=== PATIENT | male | born 1995 | race Caucasian/White ===

== ENCOUNTER 2018-08-26 07:20 | Emergency (ER) | payer BC ==
[2018-08-26 07:35] VITALS: BP 125/59
[2018-08-26] MEDS ORDERED: hydrOXYzine HCL TAB* 25 MG PO ONE (08:08)
[2018-08-26] MEDS ORDERED: Ondansetron ODT TAB* 4 MG PO ONE (08:09)
[2018-08-26] MEDS ORDERED: NS 0.9% 1000 ML* 1,000 ML IV ONE (08:09)
--- NOTE | 2018-08-26 08:15 | UC ---
Psychiatric Complaint HPI - HPI Summary HPI Summary: 23-year-old male comes in to clinic today with a chief complaint of feeling very anxious. Patient's been having anxiety for several weeks. He's had a couple episodes where he was hyperventilating and felt lightheaded and tingly all over. This particular episode occurred overnight. He did drink alcohol 2 evenings ago and yesterday had a hangover and was nauseous and did vomit. He reports his concentration is good his sleep typically has been good except for last night. Energy levels normal. Denies any suicidality. He is here with his girlfriend who he spends a lot of time with although they do not live in the same household. 5 days ago he saw a mental health counselor for the first time for this anxiety. He's not on any medications for anxiety. He's an appointment in 2 days with the counselor and he was planning on calling them today and discussing his symptoms. - History Of Current Complaint Chief Complaint: UCGeneralIllness Stated Complaint: ANXIOUS Time Seen by Provider: 08/26/18 08:08 - Allergies/Home Medications Allergies/Adverse Reactions: Allergies Allergy/AdvReac Type Severity Reaction Status Date / Time sulfamethoxazole Allergy Unknown Verified 08/26/18 07:27 [From Bactrim] Reaction Details trimethoprim [From Bactrim] Allergy Unknown Verified 08/26/18 07:27 Reaction Details PMH/Surg Hx/FS Hx/Imm Hx Previously Healthy: Yes - Surgical History Surgical History: Yes Surgery Procedure, Year, and Place: R knee - Family History Known Family History: Positive: Non-Contributory - Social History Alcohol Use: Occasionally Alcohol Amount: had instance of heavy drinking last Friday 08/24 Substance Use Type: None Smoking Status (MU): Never Smoked Tobacco Review of Systems All Other Systems Reviewed And Are Negative: Yes Constitutional: Positive: Other - Feels tingly all over as a hard time moving when he hyperventilates Skin: Positive: Negative Eyes: Positive: Negative ENT: Positive: Negative Respiratory: Positive: Negative Cardiovascular: Positive: Negative Gastrointestinal: Positive: Vomiting Genitourinary: Positive: Negative Motor: Positive: Negative Neurovascular: Positive: Negative Musculoskeletal: Positive: Negative Neurological: Positive: Headache - mild headache since having hangover since yesterday Psychological: Positive: Anxious Is Patient Immunocompromised?: No Physical Exam Triage Information Reviewed: Yes Appearance: No Pain Distress, Well-Nourished, Other: - anxious appearing Vital Signs: Initial Vital Signs Temp 100 F 08/26/18 07:27 Pulse 84 08/26/18 07:27 Resp 20 08/26/18 07:27 BP 125/59 08/26/18 07:27 Pulse Ox 100 08/26/18 07:27 Vital Signs Reviewed: Yes Eye Exam: Normal Eyes: Positive: Conjunctiva Clear ENT: Positive: Pharynx normal, Other - oral mucosa moist. Negative: Nasal drainage Neck exam: Normal Neck: Positive: Supple Respiratory: Positive: Lungs clear, Normal breath sounds, No respiratory distress Cardiovascular: Positive: RRR Musculoskeletal Exam: Normal Musculoskeletal: Positive: Strength Intact, ROM Intact Neurological Exam: Normal Neurological: Positive: Alert, Muscle Tone Normal Psychological Exam: Normal Psychological: Positive: Age Appropriate Behavior Skin Exam: Normal Psych Complaint Course/Dx - Course Course Of Treatment: In clinic patient was given hydroxyzine 25 mg by mouth. He declined IV fluids and Zofran. He was able to drink water in clinic. He feels improved. We discussed going to the emergency department if he has any thoughts of hurting himself or the anxiety gets out of control and he agreed with this. He will be calling his counselor today day for follow-up. At this time in clinic the patient denies suicidality. - Differential Dx/Diagnosis Provider Diagnosis: Anxiety Discharge - Sign-Out/Discharge Documenting (check all that apply): Patient Departure All imaging exams completed and their final reports reviewed: No Studies - Discharge Plan Condition: Stable Disposition: HOME Prescriptions: hydrOXYzine HCl [Hydroxyzine HCl] 50 mg PO Q6H PRN #20 tablet PRN Reason: Anxiety Patient Education Materials: Anxiety (ED) Referrals: [facility] [Outside] [facility] [Outside] Additional Instructions: FOLLOW UP WITH YOUR PSYCHIATRIC COUNSELOR TODAY. GO TO THE EMERGENCY DEPARTMENT FOR ANY WORSENING OF YOUR CONDITION; ANXIETY, YOU FEEL LIKE HURTING YOURSELF OR QUESTIONS OR CONCERNS. - Billing Disposition and Condition Condition: STABLE Disposition: Home
== END 2018-08-26 09:30 | disposition home or self-care (01) ==
LOC: UCEAST 07:20
DX: F41.9 Anxiety disorder, unspecified (principal); Z88.1 Allergy status to other antibiotic agents
CPT/HCPCS: 99202; A9270-GY; G0463

== ENCOUNTER 2018-12-19 21:51 | Emergency (ER) | payer BC ==
--- NOTE | 2018-12-19 21:55 | UC ---
Ear Complaint HPI - HPI Summary HPI Summary: 23 yo male presents with RIGHT ear injury. 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 Since that time has had external right ear pain. He is concerned that he may develop cauliflower ear. No hearing difficulties. - History of Current Complaint Stated Complaint: RED AND SWOLLEN EAR Time Seen by Provider: 12/19/18 21:54 Hx Obtained From: Patient Onset/Duration: Sudden Onset Severity Initially: Moderate Severity Currently: Moderate Pain Intensity: 5 Pain Scale Used: 0-10 Numeric - Allergies/Home Medications Allergies/Adverse Reactions: Allergies Allergy/AdvReac Type Severity Reaction Status Date / Time sulfamethoxazole Allergy Unknown Verified 08/26/18 07:27 [From Bactrim] Reaction Details trimethoprim [From Bactrim] Allergy Unknown Verified 08/26/18 07:27 Reaction Details PMH/Surg Hx/FS Hx/Imm Hx - Additional Past Medical History Additional PMH: Anxiety - Surgical History Surgical History: Yes Surgery Procedure, Year, and Place: R knee - Family History Known Family History: Positive: Non-Contributory - Social History Occupation: Student Lives: With Family Alcohol Use: Occasionally Alcohol Amount: had instance of heavy drinking last Friday 08/24 Substance Use Type: None Smoking Status (MU): Never Smoked Tobacco Review of Systems All Other Systems Reviewed And Are Negative: Yes Constitutional: Positive: Negative Skin: Positive: Negative Eyes: Positive: Negative ENT: Positive: Ear Ache Respiratory: Positive: Negative Cardiovascular: Positive: Negative Gastrointestinal: Positive: Negative Neurological: Positive: Negative Psychological: Positive: Negative Physical Exam - Summary Physical Exam Summary: GENERAL: NAD. WDWN. No pain distress. SKIN: No rashes, sores, lesions, or open wounds. HEENT: Head: AT/NC Eyes: EOM intact. Conjunctiva clear without inflammation or discharge. Ears: Hearing grossly normal. Right external ear with mild erythema. Nose: Nasal mucosa pink and moist. NTTP maxillary and frontal sinus. Throat: Posterior oropharynx without exudates, erythema, or tonsillar enlargement. Uvula midline. NECK: Supple. Nontender. No lymphadenopathy. NEURO: Alert. PSYCH: Age appropriate behavior. Triage Information Reviewed: Yes Vital Signs: Vital Signs: Temp Pulse Resp BP Pulse Ox 98.0 F 82 18 141/70 99 12/19/18 22:01 12/19/18 22:01 12/19/18 22:01 12/19/18 22:01 12/19/18 22:01 Vital Signs Reviewed: Yes Ear Complaint Course/Dx - Course Course Of Treatment: Right ear injury. No hematoma at this time. Pressure dressing with gauze and koban applied. Advised to ice. If hematoma occurs to return for drainage. - Differential Dx/Diagnosis Provider Diagnosis: Right ear injury Discharge - Sign-Out/Discharge Documenting (check all that apply): Patient Departure All imaging exams completed and their final reports reviewed: No Studies - Discharge Plan Condition: Stable Disposition: HOME Referrals: No Primary Care Phys,NOPCP [Primary Care Provider] - Additional Instructions: If you develop a fever, shortness of breath, chest pain, new or worsening symptoms - please call your PCP or go to the ED. Apply ice to your ear - Billing Disposition and Condition Condition: STABLE Disposition: Home
[2018-12-19 22:04] VITALS: BP 141/70
== END 2018-12-19 22:10 | disposition home or self-care (01) ==
LOC: UCEAST 21:51
DX: S09.91XA Unspecified injury of ear, initial encounter (principal); Z88.2 Allergy status to sulfonamides; X58.XXXA Exposure to other specified factors, initial encounter; Y92.9 Unspecified place or not applicable
CPT/HCPCS: 99211; G0463